=== PATIENT | female | born 1985 | race Caucasian/White ===

== ENCOUNTER 2019-03-30 02:55 | Emergency (ER) | payer OTHER ==
[~2019-03-30] VITALS: Ht 160 cm; Wt 57.6 kg
[2019-03-30] MEDS ORDERED: VISTARIL 25 MG25 M1 PO (02:58)
[2019-03-30 03:20] LABS: ABSOLUTE BASOPHILS 0.1 thou/uL (0.0-0.2); ABSOLUTE EOSINOPHILS 0.1 thou/uL (0.0-0.7); ABSOLUTE LYMPHOCYTES 2.9 thou/uL (0.8-5.3); ABSOLUTE MONOCYTES 0.5 thou/uL (0.0-1.2); ABSOLUTE NEUTROPHILS 6.1 thou/uL (1.6-8.1); BASOPHILS 0.9 %; EOSINOPHILS 1.5 %; HEMOGLOBIN 13.5 gm/dL (12.0-15.0); LYMPHOCYTES 29.7 %; MCH 30.6 pg (26.0-34.0); MCHC 33.7 g/dL (28.0-37.0); MCV 90.7 fL (80.0-100.0); MONOCYTES 5.4 %; MPV 8.6 fl. (7.2-11.1); NUCLEATED RBCS 0 /100WBC; PLATELET COUNT* 285 thou/uL (150-400); POLYS 62.5 %; RBC 4.41 mil/uL (4.20-5.00); RDW-CV 13.3 % (10.5-14.5); WBC 9.7 thou/uL (4.0-11.0)
[2019-03-30 03:32] LABS: ANION GAP 8 mmol/L (7-16); BUN 19 mg/dL (7-18); CALCIUM 8.8 mg/dL (8.5-10.1); CHLORIDE 103 mmol/L (98-107); CO2 25 mmol/L (21-32); CREATININE 0.7 mg/dL (0.6-1.3); GLUCOSE 85 mg/dL (70-99); POTASSIUM 3.9 mmol/L (3.5-5.1); SODIUM 136 mmol/L (136-145)
[2019-03-30 03:45] LABS: MAGNESIUM 1.8 mg/dL (1.8-2.4); TROPONIN-I LEVEL <0.06 ng/mL (<0.06)
[2019-03-30 04:16] VITALS: BP 110/71
--- NOTE | 2019-03-30 12:44 | EKG ---
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
== END 2019-03-30 04:17 | disposition home or self-care (01) ==
LOC: M.ERS 02:55
PROVIDERS: Emergency Medicine
DX: F41.9 Anxiety disorder, unspecified (principal); Z88.0 Allergy status to penicillin